=== PATIENT | male | born 1965 | race Caucasian/White ===

== ENCOUNTER 2017-11-28 04:30 | Emergency (ER) | payer MEDICARE, MEDICAID ==
[2017-11-28 04:58] VITALS: BP 133/95
[2017-11-28] MEDS ORDERED: HYDROmorphone 0.5 MG/0.5 ML Syringe IVPUSH ONE (05:17)
[2017-11-28] MEDS ORDERED: Sodium Chloride 0.9% 100 ML IV SCH (05:30)
[2017-11-28] MEDS ORDERED: Iopamidol 612 MG/ML 100 ML Bottle IV SCH (05:30)
--- NOTE | 2017-11-28 06:40 | EDM.PDOC ---
ED HPI GENERAL MEDICAL PROBLEM - General Chief Complaint: Abdominal Pain Stated Complaint: MEDICAL VIA TRI Time Seen by Provider: 11/28/17 05:15 Source of Information: Reports: Patient, EMS History Limitations: Reports: No Limitations - History of Present Illness INITIAL COMMENTS - FREE TEXT/NARRATIVE: 52-year-old male who has had nausea and vomiting for the past 6-8 hours, had diarrhea since yesterday. A similar episode happened 2 years ago and it became a prolonged 3 hospital visit gastroenteritis that finally required 2 days of hospitalization because he was so symptomatic. He is obviously very anxious about being sick. He feels nauseous so he sticks his fingers down his throat to force himself to throw up. He received fentanyl and Zofran in route. No fevers or chills. Onset: Gradual Severity: Moderate Associated Symptoms: Reports: Malaise, Nausea/Vomiting. Denies: Fever/Chills, Headaches, Shortness of Breath epigastric Pain Score (Numeric/FACES): 10 - Related Data Allergies Allergy/AdvReac Type Severity Reaction Status Date / Time acetaminophen [From Tylenol] Allergy Airway Verified 01/17/16 20:55 Tightness Home Meds: Home Meds traMADol HCl [Tramadol HCl] 50 mg PO BID 11/28/17 [History] Past Medical History HEENT History: Reports: Impaired Vision Cardiovascular History: Reports: High Cholesterol Gastrointestinal History: Reports: Hiatal Hernia Genitourinary History: Reports: Other (See Below) Other Genitourinary History: urinary frequency for past 3 years Musculoskeletal History: Reports: Back Pain, Chronic, Fracture, Neck Pain, Chronic Neurological History: Reports: Brain Injury, Migraines Psychiatric History: Reports: Bipolar, Schizophrenia - Infectious Disease History Infectious Disease History: Reports: Chicken Pox - Past Surgical History HEENT Surgical History: Reports: Oral Surgery GI Surgical History: Reports: Hernia Repair/Other Musculoskeletal Surgical History: Reports: Other (See Below) Other Musculoskeletal Surgeries/Procedures:: right collar bone Social & Family History - Tobacco Use Smoking Status *Q: Light Tobacco Smoker Years of Tobacco use: 30 Packs/Tins Daily: 0.2 - Caffeine Use Caffeine Use: Reports: Coffee, Soda - Recreational Drug Use Recreational Drug Use: No ED ROS GENERAL - Review of Systems Review Of Systems: See Below Constitutional: Denies: Fever, Chills HEENT: Reports: No Symptoms Respiratory: Denies: Shortness of Breath GI/Abdominal: Reports: Abdominal Pain, Diarrhea (Abdominal), Nausea, Vomiting : Reports: No Symptoms Skin: Reports: No Symptoms ED EXAM, GI/ABD - Physical Exam Exam: See Below Exam Limited By: No Limitations General Appearance: Alert, Anxious, Mild Distress Eyes: Bilateral: Normal Appearance (No jaundice) Head: Atraumatic Respiratory/Chest: No Respiratory Distress, Lungs Clear Cardiovascular: Regular Rate, Rhythm GI/Abdominal Exam: Tender (Tender to palpation, normal bowel sounds) Neurological: Alert, Oriented Psychiatric: Anxious Skin Exam: Warm, Dry Course - Vital Signs Last Recorded V/S: Last Vital Signs Temp 97.5 F 11/28/17 04:58 Pulse 81 11/28/17 04:58 Resp 20 11/28/17 04:58 BP 133/95 H 11/28/17 04:58 Pulse Ox 97 11/28/17 04:58 - Orders/Labs/Meds Orders: Active Orders 24 hr Category Date Time Status Abdomen Pelvis w Cont [CT] Stat Exams 11/28/17 05:17 Taken Labs: Laboratory Tests 11/28/17 11/28/17 Range/Units 04:53 04:53 WBC 9.4 (4.5-11.0) K/uL RBC 5.00 (4.30-5.90) M/uL Hgb 14.8 (12.0-15.0) g/dL Hct 42.3 (40.0-54.0) % MCV 85 (80-98) fL MCH 30 (27-31) pg MCHC 35 (32-36) % Plt Count 276 (150-400) K/uL Neut % (Auto) 74 H (36-66) % Lymph % (Auto) 16 L (24-44) % [place] % (Auto) 9 H (2-6) % Eos % (Auto) 0 L (2-4) % Baso % (Auto) 0 (0-1) % Sodium 141 (140-148) mmol/L Potassium 3.8 (3.6-5.2) mmol/L Chloride 106 (100-108) mmol/L Carbon Dioxide 24 (21-32) mmol/L Anion Gap 11.5 (5.0-14.0) mmol/L BUN 8 (7-18) mg/dL Creatinine 0.9 (0.8-1.3) mg/dL Est Cr Clr Drug Dosing 87.63 mL/min Estimated GFR (MDRD) > 60 (>60) Glucose 113 H (74-106) mg/dL Calcium 8.6 (8.5-10.1) mg/dL Total Bilirubin 0.4 (0.2-1.0) mg/dL AST 17 (15-37) U/L ALT 33 (12-78) U/L Alkaline Phosphatase 71 (46-116) U/L Total Protein 6.7 (6.4-8.2) g/dL Albumin 3.4 (3.4-5.0) g/dL Globulin 3.3 (2.3-3.5) g/dL Albumin/Globulin Ratio 1.0 L (1.2-2.2) Amylase 36 (25-115) U/L Lipase 68 L (73-393) U/L Meds: Medications Discontinued Medications Generic Name Dose Route Start Last Admin Trade Name Freq PRN Reason Stop Dose Admin Hydromorphone HCl 0.5 mg 11/28/17 05:17 11/28/17 05:24 Dilaudid IVPUSH 11/28/17 05:18 0.5 mg ONETIME ONE Administration Sodium Chloride 100 mls @ 3 mls/sec 11/28/17 05:30 11/28/17 05:44 Normal Saline IV 3 mls/sec ASDIRECTED TRUONG Administration Iopamidol 100 ml 11/28/17 05:30 11/28/17 05:44 Isovue-300 (61%) IV 100 ml . DIRECTED TRUONG Administration - Re-Assessments/Exams Free Text/Narrative Re-Assessment/Exam: 11/28/17 06:39 Patient was given an additional 0.5 mg of IV Dilaudid, CBC CMP and lipase were obtained. I reviewed his past records, he was treated for presumptive diverticulitis and ended up being on Carafate and ranitidine when he was discharged from the hospital. CBC and CMP returned normal, lipase was negative. We then CT does abdomen with IV contrast which was also normal. By the time the CT report came back he was not vomiting, resting, and was just anxious about the pain recurring. Departure - Departure Time of Disposition: 07:58 Disposition: Home, Self-Care 01 Condition: Good Clinical Impression: Gastroenteritis - Discharge Information Instructions: Viral Gastroenteritis, Adult, Peng-yr-Ejyc Referrals: PCP,None [Primary Care Provider] - Forms: ED Department Discharge Care Plan Goals: Stay hydrated with frequent small amounts of fluid and avoid solid food until feeling better. Increase diet as tolerated. Recheck in 2-3 days if not improving satisfactorily or return sooner if worsening. - My Orders Last 24 Hours: My Active Orders 11/28/17 05:17 Abdomen Pelvis w Cont [CT] Stat - Assessment/Plan Last 24 Hours: My Active Orders 11/28/17 05:17 Abdomen Pelvis w Cont [CT] Stat
== END 2017-11-28 07:58 | disposition home or self-care (01) ==
LOC: JP.ED 04:30
DX: K52.9 Noninfective gastroenteritis and colitis, unspecified (principal); F17.210 Nicotine dependence, cigarettes, uncomplicated; Z88.6 Allergy status to analgesic agent
CPT/HCPCS: 36415; 74177; 80053; 82150; 83690; 85025; 96374; 99284; J1170; J7030; Q9967

== ENCOUNTER 2018-05-29 10:47 | Emergency (ER) | payer MEDICARE, MEDICAID ==
[2018-05-29] MEDS ORDERED: HYDROmorphone 1 MG/ML Syringe IVPUSH ONE (10:51)
[2018-05-29] MEDS ORDERED: LORazepam 2 MG/ML SDV IVPUSH ONE (10:51)
[2018-05-29] MEDS ORDERED: Sodium Chloride 0.9% 10 ML Syringe FLUSH PRN (10:53)
[2018-05-29] MEDS ORDERED: Pantoprazole 40 MG Vial IVPUSH ONE (10:57)
[2018-05-29] MEDS ORDERED: Lactated Ringers 1,000 ML IV SCH (11:00)
--- NOTE | 2018-05-29 11:02 | EDM.PDOC ---
ED HPI GENERAL MEDICAL PROBLEM - General Stated Complaint: ABD PAIN Time Seen by Provider: 05/29/18 10:50 Source of Information: Reports: Patient, Old Records, RN Notes Reviewed History Limitations: Reports: No Limitations - History of Present Illness INITIAL COMMENTS - FREE TEXT/NARRATIVE: 52-year-old gentleman presents to the emergency department day complaint of abdominal pain, he states the abdominal pain has been ongoing for the last 3 days however state got significantly worse it is mainly in the epigastric area it is quite intense he is having difficulty answering questions screaming in pain. Difficult to obtain history or review of systems from him due to his severe agitation Abdomen Pain Score (Numeric/FACES): 10 - Related Data Allergies Allergy/AdvReac Type Severity Reaction Status Date / Time acetaminophen [From Tylenol] Allergy Airway Verified 05/29/18 11:19 Tightness Home Meds: Home Meds traMADol HCl [Tramadol HCl] 100 mg PO QID 11/28/17 [History] Ondansetron [Zofran ODT] 4 mg PO Q6H PRN #10 tab.dis 05/29/18 [Rx] oxyCODONE 5 mg PO TID PRN #5 tab 05/29/18 [Rx] Past Medical History HEENT History: Reports: Impaired Vision Cardiovascular History: Reports: High Cholesterol Gastrointestinal History: Reports: Hiatal Hernia Genitourinary History: Reports: Other (See Below) Other Genitourinary History: urinary frequency for past 3 years Musculoskeletal History: Reports: Back Pain, Chronic, Fracture, Neck Pain, Chronic Neurological History: Reports: Brain Injury, Migraines Psychiatric History: Reports: Bipolar, Schizophrenia - Infectious Disease History Infectious Disease History: Reports: Chicken Pox - Past Surgical History HEENT Surgical History: Reports: Oral Surgery GI Surgical History: Reports: Hernia Repair/Other Musculoskeletal Surgical History: Reports: Other (See Below) Other Musculoskeletal Surgeries/Procedures:: right collar bone Social & Family History - Caffeine Use Caffeine Use: Reports: Coffee, Soda ED ROS GENERAL - Review of Systems Review Of Systems: See Below Constitutional: Denies: Fever, Chills Respiratory: Reports: No Symptoms Cardiovascular: Reports: No Symptoms GI/Abdominal: Reports: Abdominal Pain, Flatus, Nausea, Vomiting ED EXAM, GI/ABD - Physical Exam Exam: See Below Exam Limited By: No Limitations General Appearance: Alert, Severe Distress Respiratory/Chest: No Respiratory Distress, Lungs Clear, Normal Breath Sounds, No Accessory Muscle Use Cardiovascular: Regular Rate, Rhythm, No Murmur GI/Abdominal Exam: Soft, Tender (Epigastric region) Extremities: Normal Inspection, Normal Range of Motion, Non-Tender, No Pedal Edema, Normal Capillary Refill Course - Vital Signs Last Recorded V/S: Last Vital Signs Temp 95.2 F L 05/29/18 11:09 Pulse 67 05/29/18 11:44 Resp 18 05/29/18 11:09 BP 158/97 H 05/29/18 11:44 Pulse Ox 92 L 05/29/18 11:44 - Orders/Labs/Meds Orders: Active Orders 24 hr Category Date Time Status Peripheral IV Care [RC] . DIRECTED Care 05/29/18 10:54 Active Abdomen Pelvis w Cont [CT] Urgent Exams 05/29/18 10:53 Taken Iopamidol [Isovue-300 (61%)] Med 05/29/18 12:00 Active 122 ml IV . DIRECTED Lactated Ringers [Ringers, Lactated] 1,000 ml Med 05/29/18 11:00 Active IV ASDIRECTED Sodium Chloride 0.9% [Saline Flush] Med 05/29/18 10:53 Active 10 ml FLUSH ASDIRECTED PRN Peripheral IV Insertion Adult [OM.PC] Urgent Oth 05/29/18 10:53 Ordered Medication Orders Lactated Ringer's (Ringers, Lactated) 1,000 mls @ 999 mls/hr IV ASDIRECTED TRUONG Last Admin: 05/29/18 11:05 Dose: 999 mls/hr Iopamidol (Isovue-300 (61%)) 122 ml IV . DIRECTED TRUONG Last Admin: 05/29/18 12:11 Dose: 122 ml Sodium Chloride (Saline Flush) 10 ml FLUSH ASDIRECTED PRN PRN Reason: Keep Vein Open Last Admin: 05/29/18 12:11 Dose: 10 ml Labs: Laboratory Tests 05/29/18 05/29/18 05/29/18 Range/Units 10:58 10:58 10:58 WBC 11.4 H (4.5-11.0) K/uL RBC 5.77 (4.30-5.90) M/uL Hgb 17.5 H D (12.0-15.0) g/dL Hct 47.8 (40.0-54.0) % MCV 83 (80-98) fL MCH 30 (27-31) pg MCHC 37 H (32-36) % Plt Count 319 (150-400) K/uL Neut % (Auto) 75 H (36-66) % Lymph % (Auto) 16 L (24-44) % [place] % (Auto) 10 H (2-6) % Eos % (Auto) 0 L (2-4) % Baso % (Auto) 0 (0-1) % PT 11.1 (9.5-12.0) sec INR 1.01 (0.80-1.20) Sodium 141 (140-148) mmol/L Potassium 3.1 L (3.6-5.2) mmol/L Chloride 101 (100-108) mmol/L Carbon Dioxide 23 (21-32) mmol/L Anion Gap 20.1 H (5.0-14.0) mmol/L BUN 9 (7-18) mg/dL Creatinine 1.4 H D (0.8-1.3) mg/dL Est Cr Clr Drug Dosing 56.33 mL/min Estimated GFR (MDRD) 53 L (>60) Glucose 141 H (74-106) mg/dL Lactic Acid (0.4-2.0) mmol/L Calcium 10.5 H D (8.5-10.1) mg/dL Total Bilirubin 0.7 D (0.2-1.0) mg/dL AST 20 (15-37) U/L ALT 39 (12-78) U/L Alkaline Phosphatase 89 (46-116) U/L Troponin I < 0.017 (0.000-0.056) ng/mL Total Protein 8.3 H (6.4-8.2) g/dL Albumin 4.1 (3.4-5.0) g/dL Globulin 4.2 H (2.3-3.5) g/dL Albumin/Globulin Ratio 1.0 L (1.2-2.2) Lipase 80 (73-393) U/L Urine Color Urine Appearance Urine pH (4.5-8.0) Ur Specific [place] (1.008-1.030) Urine Protein (NEGATIVE) mg/dL Urine Glucose (UA) (NEGATIVE) mg/dL Urine Ketones (NEGATIVE) mg/dL Urine Occult Blood (NEGATIVE) Urine Nitrite (NEGAITVE) Urine Bilirubin (NEGATIVE) Urine Urobilinogen (NORMAL) mg/dL Ur Leukocyte Esterase (NEGATIVE) Urine RBC (0-5) Urine WBC (0-5) Ur Epithelial Cells Amorphous Sediment Urine Bacteria Urine Mucus Urine Opiates Screen (NEGATIVE) Ur Oxycodone Screen (NEGATIVE) Urine Methadone Screen (NEGATIVE) Ur Propoxyphene Screen (NEGATIVE) Ur Barbiturates Screen (NEGATIVE) Ur Tricyclics Screen (NEGATIVE) Ur Phencyclidine Scrn (NEGATIVE) Ur Amphetamine Screen (NEGATIVE) U Methamphetamines Scrn (NEGATIVE) Urine MDMA Screen (NEGATIVE) U Benzodiazepines Scrn (NEGATIVE) U Cocaine Metab Screen (NEGATIVE) U Marijuana (THC) Screen (NEGATIVE) Ethyl Alcohol mg/dL 05/29/18 05/29/18 05/29/18 Range/Units 10:58 11:44 12:25 WBC (4.5-11.0) K/uL RBC (4.30-5.90) M/uL Hgb (12.0-15.0) g/dL Hct (40.0-54.0) % MCV (80-98) fL MCH (27-31) pg MCHC (32-36) % Plt Count (150-400) K/uL Neut % (Auto) (36-66) % Lymph % (Auto) (24-44) % [place] % (Auto) (2-6) % Eos % (Auto) (2-4) % Baso % (Auto) (0-1) % PT (9.5-12.0) sec INR (0.80-1.20) Sodium (140-148) mmol/L Potassium (3.6-5.2) mmol/L Chloride (100-108) mmol/L Carbon Dioxide (21-32) mmol/L Anion Gap (5.0-14.0) mmol/L BUN (7-18) mg/dL Creatinine (0.8-1.3) mg/dL Est Cr Clr Drug Dosing mL/min Estimated GFR (MDRD) (>60) Glucose (74-106) mg/dL Lactic Acid 5.0 H (0.4-2.0) mmol/L Calcium (8.5-10.1) mg/dL Total Bilirubin (0.2-1.0) mg/dL AST (15-37) U/L ALT (12-78) U/L Alkaline Phosphatase (46-116) U/L Troponin I (0.000-0.056) ng/mL Total Protein (6.4-8.2) g/dL Albumin (3.4-5.0) g/dL Globulin (2.3-3.5) g/dL Albumin/Globulin Ratio (1.2-2.2) Lipase (73-393) U/L Urine Color Yellow Urine Appearance Clear Urine pH 9.0 H (4.5-8.0) Ur Specific [place] 1.000 L (1.008-1.030) Urine Protein 30 H (NEGATIVE) mg/dL Urine Glucose (UA) Normal (NEGATIVE) mg/dL Urine Ketones 50 H (NEGATIVE) mg/dL Urine Occult Blood Negative (NEGATIVE) Urine Nitrite Negative (NEGAITVE) Urine Bilirubin Negative (NEGATIVE) Urine Urobilinogen Normal (NORMAL) mg/dL Ur Leukocyte Esterase Negative (NEGATIVE) Urine RBC Not seen (0-5) Urine WBC Not seen (0-5) Ur Epithelial Cells Rare Amorphous Sediment Not seen Urine Bacteria Not seen Urine Mucus Not seen Urine Opiates Screen (NEGATIVE) Ur Oxycodone Screen (NEGATIVE) Urine Methadone Screen (NEGATIVE) Ur Propoxyphene Screen (NEGATIVE) Ur Barbiturates Screen (NEGATIVE) Ur Tricyclics Screen (NEGATIVE) Ur Phencyclidine Scrn (NEGATIVE) Ur Amphetamine Screen (NEGATIVE) U Methamphetamines Scrn (NEGATIVE) Urine MDMA Screen (NEGATIVE) U Benzodiazepines Scrn (NEGATIVE) U Cocaine Metab Screen (NEGATIVE) U Marijuana (THC) Screen (NEGATIVE) Ethyl Alcohol < 3 mg/dL 05/29/18 Range/Units 12:25 WBC (4.5-11.0) K/uL RBC (4.30-5.90) M/uL Hgb (12.0-15.0) g/dL Hct (40.0-54.0) % MCV (80-98) fL MCH (27-31) pg MCHC (32-36) % Plt Count (150-400) K/uL Neut % (Auto) (36-66) % Lymph % (Auto) (24-44) % [place] % (Auto) (2-6) % Eos % (Auto) (2-4) % Baso % (Auto) (0-1) % PT (9.5-12.0) sec INR (0.80-1.20) Sodium (140-148) mmol/L Potassium (3.6-5.2) mmol/L Chloride (100-108) mmol/L Carbon Dioxide (21-32) mmol/L Anion Gap (5.0-14.0) mmol/L BUN (7-18) mg/dL Creatinine (0.8-1.3) mg/dL Est Cr Clr Drug Dosing mL/min Estimated GFR (MDRD) (>60) Glucose (74-106) mg/dL Lactic Acid (0.4-2.0) mmol/L Calcium (8.5-10.1) mg/dL Total Bilirubin (0.2-1.0) mg/dL AST (15-37) U/L ALT (12-78) U/L Alkaline Phosphatase (46-116) U/L Troponin I (0.000-0.056) ng/mL Total Protein (6.4-8.2) g/dL Albumin (3.4-5.0) g/dL Globulin (2.3-3.5) g/dL Albumin/Globulin Ratio (1.2-2.2) Lipase (73-393) U/L Urine Color Urine Appearance Urine pH (4.5-8.0) Ur Specific [place] (1.008-1.030) Urine Protein (NEGATIVE) mg/dL Urine Glucose (UA) (NEGATIVE) mg/dL Urine Ketones (NEGATIVE) mg/dL Urine Occult Blood (NEGATIVE) Urine Nitrite (NEGAITVE) Urine Bilirubin (NEGATIVE) Urine Urobilinogen (NORMAL) mg/dL Ur Leukocyte Esterase (NEGATIVE) Urine RBC (0-5) Urine WBC (0-5) Ur Epithelial Cells Amorphous Sediment Urine Bacteria Urine Mucus Urine Opiates Screen Presumptive positive H (NEGATIVE) Ur Oxycodone Screen Negative (NEGATIVE) Urine Methadone Screen Negative (NEGATIVE) Ur Propoxyphene Screen Negative (NEGATIVE) Ur Barbiturates Screen Negative (NEGATIVE) Ur Tricyclics Screen Negative (NEGATIVE) Ur Phencyclidine Scrn Negative (NEGATIVE) Ur Amphetamine Screen Negative (NEGATIVE) U Methamphetamines Scrn Presumptive positive H (NEGATIVE) Urine MDMA Screen Negative (NEGATIVE) U Benzodiazepines Scrn Presumptive positive H (NEGATIVE) U Cocaine Metab Screen Negative (NEGATIVE) U Marijuana (THC) Screen Presumptive positive H (NEGATIVE) Ethyl Alcohol mg/dL Meds: Medications Generic Name Dose Route Start Last Admin Trade Name Freq PRN Reason Stop Dose Admin Lactated Ringer's 1,000 mls @ 999 mls/hr 05/29/18 11:00 05/29/18 11:05 Ringers, Lactated IV 999 mls/hr ASDIRECTED TRUONG Administration Iopamidol 122 ml 05/29/18 12:00 05/29/18 12:11 Isovue-300 (61%) IV 122 ml . DIRECTED TRUONG Administration Sodium Chloride 10 ml 05/29/18 10:53 05/29/18 12:11 Saline Flush FLUSH 10 ml ASDIRECTED PRN Administration Keep Vein Open Discontinued Medications Generic Name Dose Route Start Last Admin Trade Name Jimmyq PRN Reason Stop Dose Admin Hydromorphone HCl 1 mg 05/29/18 10:51 05/29/18 11:02 Dilaudid IVPUSH 05/29/18 10:52 1 mg ONETIME ONE Administration Hydromorphone HCl 0.5 mg 05/29/18 14:41 05/29/18 14:46 Dilaudid IVPUSH 05/29/18 14:42 0.5 mg ONETIME ONE Administration Sodium Chloride 100 mls @ 3 mls/sec 05/29/18 11:48 05/29/18 12:11 Normal Saline IV 05/29/18 11:49 3 mls/sec ONETIME ONE Administration Lactated Ringer's 1,000 mls @ 999 mls/hr 05/29/18 15:06 05/29/18 15:16 Ringers, Lactated IV 05/29/18 16:06 999 mls/hr BOLUS ONE Administration Ketorolac Tromethamine 30 mg 05/29/18 13:00 05/29/18 13:08 Toradol IVPUSH 05/29/18 13:01 30 mg ONETIME ONE Administration Lorazepam 1 mg 05/29/18 10:51 05/29/18 11:02 Ativan IVPUSH 05/29/18 10:52 1 mg ONETIME ONE Administration Ondansetron HCl 4 mg 05/29/18 12:57 05/29/18 13:03 Zofran IVPUSH 05/29/18 12:58 4 mg ONETIME ONE Administration Pantoprazole Sodium 40 mg 05/29/18 10:57 05/29/18 11:07 Protonix Iv IVPUSH 05/29/18 10:58 40 mg ONETIME ONE Administration Prochlorperazine Edisylate 5 mg 05/29/18 14:51 05/29/18 15:16 Compazine IVPUSH 05/29/18 14:52 5 mg ONETIME ONE Administration Sodium Chloride 10 ml 05/29/18 11:48 05/29/18 12:32 Normal Saline FLUSH 05/29/18 11:49 10 ml ONETIME ONE Administration Departure - Departure Time of Disposition: 16:21 Disposition: Home, Self-Care 01 Condition: Fair Clinical Impression: Epigastric pain - Discharge Information Prescriptions: Ondansetron [Zofran ODT] 4 mg PO Q6H PRN #10 tab.dis PRN Reason: Nausea oxyCODONE 5 mg PO TID PRN #5 tab PRN Reason: Pain Referrals: PCP,None [Primary Care Provider] - Forms: ED Department Discharge Care Plan Goals: Come to the hospital at 8:15 a.m. to register for your procedure. Nothing to eat or drink after midnight tonight. - My Orders Last 24 Hours: My Active Orders 05/29/18 10:53 Abdomen Pelvis w Cont [CT] Urgent Sodium Chloride 0.9% [Saline Flush] 10 ml FLUSH ASDIRECTED PRN Peripheral IV Insertion Adult [OM.PC] Urgent 05/29/18 10:54 Peripheral IV Care [RC] . DIRECTED 05/29/18 11:00 Lactated Ringers [Ringers, Lactated] 1,000 ml IV ASDIRECTED 05/29/18 12:00 Iopamidol [Isovue-300 (61%)] 122 ml IV . DIRECTED - Assessment/Plan Last 24 Hours: My Active Orders 05/29/18 10:53 Abdomen Pelvis w Cont [CT] Urgent Sodium Chloride 0.9% [Saline Flush] 10 ml FLUSH ASDIRECTED PRN Peripheral IV Insertion Adult [OM.PC] Urgent 05/29/18 10:54 Peripheral IV Care [RC] . DIRECTED 05/29/18 11:00 Lactated Ringers [Ringers, Lactated] 1,000 ml IV ASDIRECTED 05/29/18 12:00 Iopamidol [Isovue-300 (61%)] 122 ml IV . DIRECTED Plan: Assessment Acuity = acute Site and laterality = epigastric pain Etiology = unclear etiology Manifestations = none Location of injury = Home Lab values = CBC unremarkable potassium low at 3.1 consistent hypokalemia lactic acid elevated 5.0 consistent lactic acid primary related to intravascular volume depletion urine drug screen positive for methamphetamine, cannabis, opiates and benzodiazepines, gastric contacts positive for heme occult Plan Called discussed case with Dr. Kwong 1400 also reviewed the case with Dr. Sin at 1500 felt outpatient management was appropriate I therefore a set up for an EGD tomorrow morning prescriptions faxed to [facility] for Zofran ODT 4 mg 1 tab by mouth 3 times a day when necessary as well as oxycodone 5 mg 1 tablet by mouth 3 times a day when necessary total #5. He will report to outpatient surgery tomorrow for EGD with Dr. Kwong This note was dictated using [employer] voice recognition software please call with any questions on syntax or grammar.
[2018-05-29 11:44] VITALS: BP 158/97
[2018-05-29] MEDS ORDERED: Sodium Chloride 0.9% 100 ML IV ONE (11:48)
[2018-05-29] MEDS ORDERED: Sodium Chloride 0.9% 10 ML SDV FLUSH ONE (11:48)
[2018-05-29] MEDS ORDERED: Iopamidol 612 MG/ML 150 ML Bottle IV SCH (12:00)
[2018-05-29] MEDS ORDERED: Ondansetron 4 MG/2 ML SDV IVPUSH ONE (12:57)
[2018-05-29] MEDS ORDERED: Ketorolac 30 MG/ML SDV IVPUSH ONE (13:00)
[2018-05-29] MEDS ORDERED: HYDROmorphone 0.5 MG/0.5 ML Syringe IVPUSH ONE (14:41)
[2018-05-29] MEDS ORDERED: Prochlorperazine 10 MG/2 ML SDV IVPUSH ONE (14:51)
[2018-05-29] MEDS ORDERED: Lactated Ringers 1,000 ML IV ONE (15:06)
== END 2018-05-29 16:45 | disposition home or self-care (01) ==
LOC: JP.ED 10:47
DX: R10.13 Epigastric pain (principal); E78.00 Pure hypercholesterolemia, unspecified; Z88.8 Allergy status to other drugs, medicaments and biological substances; Z79.899 Other long term (current) drug therapy
CPT/HCPCS: 36415; 74177; 80053; 80305; 81001; 82271; 83605; 83690; 84484; 85025; 85610; 96361; 96374; 96375; 96376; 99284; C9113; G0480; J0780; J1170; J1885; J2060; J2405; J7030; J7120

== ENCOUNTER 2018-05-30 07:51 | Day surgery (SDC) | payer MEDICARE, MEDICAID ==
[2018-05-30] MEDS ORDERED: Dextrose 5%-Lactated Ringers 1,000 ML IV SCH (08:45)
[2018-05-30] MEDS ORDERED: Midazolam 1 MG/ML 2 ML SDV ONE (08:56)
[2018-05-30] MEDS ORDERED: Propofol 200 MG/20 ML SDV ONE (08:56)
[2018-05-30] MEDS ORDERED: fentaNYL 100 MCG/2 ML SDV ONE (08:56)
[2018-05-30] MEDS ORDERED: Pantoprazole 40 MG Vial IVPUSH ONE (10:46)
[2018-05-30 12:31] VITALS: BP 109/67
--- NOTE | 2018-06-03 14:27 | OR ---
DATE OF PROCEDURE: 05/30/2018 PREOPERATIVE DIAGNOSIS: Epigastric pain. POSTOPERATIVE DIAGNOSIS: Epigastric pain associated with erosive gastritis involving body and antrum of the stomach. OPERATIVE PROCEDURE: Esophagogastroduodenoscopy with antral biopsies for CLOtest. ANESTHESIA: IV sedation. INDICATION FOR PROCEDURE: A 52-year-old seen in the emergency room yesterday with epigastric discomfort. He is to undergo an upper GI endoscopy at this time. Potential risks of the procedure including bleeding and perforation were discussed, and the patient wishes to proceed. DETAILS OF PROCEDURE: The patient was taken to the operating room and placed in a left lateral decubitus position. IV sedation was administered, after which the upper GI endoscope was passed orally through the length of the esophagus, then into the stomach with retroflexion view of the fundus, thereafter through the pyloric channel, and into the junction of the third and fourth portions of the duodenum. Findings included normal hypopharynx, larynx, upper esophageal sphincter, and esophageal body. At the EG junction, a small hiatal hernia was present, but without significant inflammation. As one passed into the stomach, there was small amount of coffee-ground type material present. Beginning in the mid-body, there were several erosions. One of these had some old-appearing clot on the surface, the others were covered with fibrinous exudate. At this time, no active bleeding was seen. The pyloric channel and the duodenum at the junction of the third and fourth portions were otherwise unremarkable. At this point, biopsies were obtained from the antrum and sent for CLOtest for H. pylori. Minimal bleeding from the biopsy site was seen, and the procedure then concluded. The patient will be given Protonix 40 mg IV in the recovery room and then begin 40 mg daily, and this will be called in. He is set up to see his personal physician, Dr. Pattie Kinney, in [place], in roughly 2 weeks. Rashaun Kwong MD Job #: [id number]
== END 2018-05-30 12:25 | disposition home or self-care (01) ==
LOC: JP.SDS 07:51
PROVIDERS: ATTEND Surgery
DX: K29.00 Acute gastritis without bleeding (principal); F17.200 Nicotine dependence, unspecified, uncomplicated; E78.5 Hyperlipidemia, unspecified; Z88.6 Allergy status to analgesic agent
CPT/HCPCS: 43239; 87081; C9113; J2250; J2704; J3010; J7042

== ENCOUNTER 2018-05-30 20:06 | Emergency (ER) | payer MEDICARE, MEDICAID ==
[2018-05-30] MEDS ORDERED: Metoclopramide 10 MG/2 ML SDV IVPUSH ONE (20:16)
[2018-05-30] MEDS ORDERED: Alum Hydrox/Mag Hydrox/Simeth 15 ML, Lidocaine 2% 15 ML PO ONE ×2 (20:16)
--- NOTE | 2018-05-30 20:28 | EDM.PDOC ---
ED HPI GENERAL MEDICAL PROBLEM - General Chief Complaint: Abdominal Pain Stated Complaint: MEDICAL [facility] Time Seen by Provider: 05/30/18 20:22 Source of Information: Reports: Patient, EMS, Old Records, RN History Limitations: Reports: No Limitations - History of Present Illness INITIAL COMMENTS - FREE TEXT/NARRATIVE: 52 yo male returns to the ER for epigastric pain and vomiting. Was seen yesterday and had a big ER work up including blood work and a CT scan that failed to show significant pathology. He did have a very positive urine drug screen with amphetamines, benzo's, opiates, and marijuana present. Today he had EGD here for further work up. EMS gave f fentanyl 100 mcg IV before arrival with partial relief(minimal). Claims today's scoping showed gastric ulcers and he was placed in Protonix 40 mg daily for this and sent home. Alleges terrible pain not relieved with the fentanyl. No report of bleeding either orally or rectally. Onset: Gradual, Unknown/Unsure Duration: Day(s):, Getting Worse Location: Reports: Abdomen (epigastric) Quality: Reports: Stabbing Severity: Severe Improves with: Reports: None Worsens with: Reports: Other (unknown) Context: Reports: Other (See HPI) Associated Symptoms: Reports: Nausea/Vomiting. Denies: Fever/Chills Treatments WE[employer]: Reports: Other (see below) (fentanyl 100 mcg IV) Upper Abdomen Pain Score (Numeric/FACES): 10 - Related Data Allergies Allergy/AdvReac Type Severity Reaction Status Date / Time acetaminophen [From Tylenol] Allergy Airway Verified 05/30/18 20:45 Tightness Home Meds: Home Meds traMADol HCl [Tramadol HCl] 100 mg PO QID 11/28/17 [History] oxyCODONE 5 mg PO TID PRN #5 tab 05/29/18 [Rx] Pantoprazole [ProTONIX] 40 mg PO DAILY 05/30/18 [History] Past Medical History HEENT History: Reports: Impaired Vision Cardiovascular History: Reports: High Cholesterol Gastrointestinal History: Reports: Hiatal Hernia Genitourinary History: Reports: Other (See Below) Other Genitourinary History: urinary frequency for past 3 years Musculoskeletal History: Reports: Back Pain, Chronic, Fracture, Neck Pain, Chronic Neurological History: Reports: Brain Injury, Migraines Psychiatric History: Reports: Bipolar, Schizophrenia - Infectious Disease History Infectious Disease History: Reports: Chicken Pox - Past Surgical History Head Surgeries/Procedures: Reports: None HEENT Surgical History: Reports: Oral Surgery Cardiovascular Surgical History: Reports: None Respiratory Surgical History: Reports: None GI Surgical History: Reports: Hernia Repair/Other Musculoskeletal Surgical History: Reports: Other (See Below) Other Musculoskeletal Surgeries/Procedures:: right collar bone Social & Family History - Family History Family Medical History: Noncontributory - Caffeine Use Caffeine Use: Reports: Coffee, Tea ED ROS GENERAL - Review of Systems Review Of Systems: See Below Constitutional: Reports: No Symptoms HEENT: Reports: No Symptoms Respiratory: Reports: No Symptoms Cardiovascular: Reports: No Symptoms GI/Abdominal: Reports: Abdominal Pain, Nausea, Vomiting. Denies: Black Stool, Bloody Stool, Constipation, Diarrhea, Distension, Hematemesis, Hematochezia, Melena : Reports: No Symptoms Musculoskeletal: Reports: No Symptoms Skin: Reports: No Symptoms Neurological: Reports: No Symptoms ED EXAM, GI/ABD - Physical Exam Exam: See Below Exam Limited By: No Limitations General Appearance: Alert, WD/WN, No Apparent Distress Eyes: Bilateral: Normal Appearance Ears: Normal External Exam, Normal Canal Nose: Normal Inspection, No Blood Throat/Mouth: Normal Inspection, Normal Lips, Normal Oropharynx, Normal Voice, No Airway Compromise Head: Atraumatic, Normocephalic Neck: Normal Inspection Respiratory/Chest: No Respiratory Distress, Lungs Clear, Normal Breath Sounds, No Accessory Muscle Use Cardiovascular: Regular Rate, Rhythm, No Edema GI/Abdominal Exam: Normal Bowel Sounds, Soft, No Distention, Tender (epigastric) . No: Distended, Guarding, Rigid, Rebound, Hernia Back Exam: Normal Inspection. No: CVA Tenderness (R), CVA Tenderness (L) Extremities: Normal Inspection, Normal Range of Motion, Non-Tender, No Pedal Edema Neurological: Alert, Oriented, CN II-XII Intact, Normal Cognition, No Motor/ Sensory Deficits Psychiatric: Normal Affect, Normal Mood Skin Exam: Warm, Dry, Intact, Normal Color, No Rash Lymphatic: No Adenopathy Course - Vital Signs Text/Narrative:: Seems more comfortable after tx in the ER Last Recorded V/S: Last Vital Signs Temp 37.0 C 05/30/18 20:44 Pulse 69 05/30/18 20:44 Resp 22 H 05/30/18 20:44 BP 136/80 05/30/18 20:44 Pulse Ox 99 05/30/18 20:44 - Orders/Labs/Meds Orders: Active Orders 24 hr Category Date Time Status Pantoprazole [ProTONIX IV] Med 05/30/18 20:30 Active 80 mg IVPUSH .BOLUS Medication Orders Pantoprazole Sodium (Protonix Iv) 80 mg IVPUSH .BOLUS TRUONG Last Admin: 05/30/18 20:38 Dose: 80 mg Labs: Laboratory Tests 05/30/18 05/30/18 05/30/18 Range/Units 20:21 20:21 20:21 WBC 9.3 (4.5-11.0) K/uL RBC 5.30 (4.30-5.90) M/uL Hgb 15.5 H D (12.0-15.0) g/dL Hct 44.5 (40.0-54.0) % MCV 84 (80-98) fL MCH 29 (27-31) pg MCHC 35 (32-36) % Plt Count 321 (150-400) K/uL Sodium 141 (140-148) mmol/L Potassium 3.2 L (3.6-5.2) mmol/L Chloride 102 (100-108) mmol/L Carbon Dioxide 24 (21-32) mmol/L Anion Gap 18.2 H (5.0-14.0) mmol/L BUN 9 (7-18) mg/dL Creatinine 1.1 (0.8-1.3) mg/dL Est Cr Clr Drug Dosing 71.69 mL/min Estimated GFR (MDRD) > 60 (>60) Glucose 131 H (74-106) mg/dL Calcium 9.2 (8.5-10.1) mg/dL C-Reactive Protein 1.00 H (0.0-0.3) mg/dL Lipase 74 (73-393) U/L Meds: Medications Generic Name Dose Route Start Last Admin Trade Name Freq PRN Reason Stop Dose Admin Pantoprazole Sodium 80 mg 05/30/18 20:30 05/30/18 20:38 Protonix Iv IVPUSH 80 mg .BOLUS TRUONG Administration Discontinued Medications Generic Name Dose Route Start Last Admin Trade Name Freq PRN Reason Stop Dose Admin Al Hydroxide/Mg Hydroxide 15 0 ml 05/30/18 20:16 05/30/18 20:31 ml/ Lidocaine HCl 15 ml PO 05/30/18 20:17 30 ml ONETIME ONE Administration Metoclopramide HCl 10 mg 05/30/18 20:16 05/30/18 20:30 Reglan IVPUSH 05/30/18 20:17 10 mg ONETIME ONE Administration Potassium Chloride 20 meq 05/30/18 21:12 Potassium Chloride PO 05/30/18 21:13 ONETIME ONE Departure - Departure Time of Disposition: 21:25 Disposition: Home, Self-Care 01 Condition: Fair Clinical Impression: Peptic ulcer disease, Hypokalemia Gastritis Qualifiers: Gastritis type: unspecified gastritis Chronicity: acute Gastritis bleeding: without bleeding Qualified Code(s): K29.00 - Acute gastritis without bleeding - Discharge Information *PRESCRIPTION DRUG MONITORING PROGRAM REVIEWED*: No *COPY OF PRESCRIPTION DRUG MONITORING REPORT IN PATIENT ALLISON: No Instructions: Peptic Ulcer, [id number], Hypokalemia Referrals: PCP,None [Primary Care Provider] - Forms: ED Department Discharge Additional Instructions: Resume your prescribed medication in the morning tomorrow. Take Maalox 30 ml with every meal and at bedtime until your pain is gone. Avoid ibuprofen, Aleve, or aspirin. Avoid any illicit drugs. See your doctor for recheck early next week. Use Zofran as needed for nausea control. - My Orders Last 24 Hours: My Active Orders 05/30/18 20:30 Pantoprazole [ProTONIX IV] 80 mg IVPUSH .BOLUS - Assessment/Plan Last 24 Hours: My Active Orders 05/30/18 20:30 Pantoprazole [ProTONIX IV] 80 mg IVPUSH .BOLUS
[2018-05-30] MEDS ORDERED: Pantoprazole 40 MG Vial IVPUSH SCH (20:30)
[2018-05-30] MEDS ORDERED: Potassium Chloride 10 MEQ Cap.ER PO ONE (21:12)
[2018-05-30] MEDS ORDERED: Aluminum Hydroxide/Magnesium Hydroxide/Simethicone Susp 30 ML Cup PO ONE (21:26)
[2018-05-30 21:51] VITALS: BP 128/78
== END 2018-05-30 21:40 | disposition home or self-care (01) ==
LOC: JP.ED 20:06
DX: K29.00 Acute gastritis without bleeding (principal); K27.9 Peptic ulcer, site unspecified, unspecified as acute or chronic, without hemorrhage or perforation; E87.6 Hypokalemia; Z88.8 Allergy status to other drugs, medicaments and biological substances
CPT/HCPCS: 36415; 80048; 83690; 85027; 86140; 96374; 96375; 99284; A9270; C9113; J2765

== ENCOUNTER 2021-10-11 20:40 | Emergency (ER) | payer MEDICARE, MEDICAID ==
[2021-10-11] MEDS ORDERED: OLANZapine 10 MG Vial IM ONE (20:50)
[2021-10-11 21:22] LABS: TROPONIN I HIGH SENSITIVITY 5.3 pg/mL (<=60.3)
[2021-10-11 21:42] LABS: CORONAVIRUS COVID-19 NAA NEGATIVE (NEGATIVE)
[2021-10-12 00:13] VITALS: BP 96/45; PULSE 93
== END 2021-10-12 09:10 | disposition home or self-care (01) ==
LOC: JP.ED 20:40
DX: R40.20 Unspecified coma (principal); F10.920 Alcohol use, unspecified with intoxication, uncomplicated; Z88.6 Allergy status to analgesic agent; Z79.899 Other long term (current) drug therapy; Z20.822 Contact with and (suspected) exposure to COVID-19
CPT/HCPCS: 0241U; 36415; 70450; 80053; 80305-QW; 80307; 81001; 84484; 85025; 85610; 85730; 96372; 99285-25; J3490

== ENCOUNTER 2022-11-29 20:16 | Day surgery (SDC) | payer MEDICARE, MEDICAID ==
[2022-11-29 20:35] LABS: BASOPHILS ABSOLUTE AUTO 0.03 K/uL (0.00-0.10); BASOPHILS PERCENT AUTO 0.2 % (0.1-1.3); EOSINOPHILS PERCENT AUTO 0.1 % (0.0-5.4); HEMATOCRIT 43.2 % (38.4-49.7); HEMOGLOBIN 14.9 g/dL (12.9-16.9); IMMATURE GRAN ABSOLUTE AUTO 0.05 K/uL (0.00-0.23); IMMATURE GRAN PERCENT AUTO 0.4 % (0.0-0.7); LYMPHOCYTES ABSOLUTE AUTO 2.14 K/uL (0.8-3.3); LYMPHOCYTES PERCENT AUTO 15.5 % (11.4-47.7); MEAN CORPUSCULAR HEMOGLOBIN 29.2 pg (31.6-35.5); MEAN CORPUSCULAR HGB CONC 34.5 g/dL (31.6-35.5); MEAN CORPUSCULAR VOLUME 84.7 fL (81.4-99.0); MONOCYTES ABSOLUTE AUTO 0.72 K/uL (0.20-0.90); MONOCYTES PERCENT AUTO 5.2 % (3.3-12.6); NEUTROPHILS ABSOLUTE AUTO 10.83 K/uL (1.0-7.6); NEUTROPHILS PERCENT AUTO 78.6 % (40.0-78.1); PLATELET COUNT,PLT 339 K/uL (130-375); WHITE BLOOD CELL COUNT,WBC 13.8 K/uL (3.2-11.0)
[2022-11-29 20:36] LABS: EOSINOPHILS ABSOLUTE AUTO 0.01 K/uL (0.00-0.40)
[2022-11-29] MEDS ORDERED: LORazepam 2 MG/ML SDV IVPUSH ONE (20:52)
[2022-11-29 20:57] LABS: A/G RATIO 0.9 (1.2-2.2); ALANINE AMINOTRANSFERASE,ALT 29 U/L (12-78); ALBUMIN 3.4 g/dL (3.4-5.0); ALKALINE PHOSPHATASE 70 U/L (46-116); ASPARTATE AMNIOTRANSFERASE,AST 17 U/L (15-37); BILIRUBIN TOTAL 0.6 mg/dL (0.2-1.0); BLOOD UREA NITROGEN,BUN 12 mg/dL (7-18); CARBON DIOXIDE,CO2 22 mmol/L (21-32); CHLORIDE,CL 108 mmol/L (100-108); CREATININE 1.2 mg/dL (0.8-1.3); EST CRCL DRUG DOSING (CG) 62.03 mL/min; ESTIMATED GFR 71 mL/min (>60); GLUCOSE RANDOM 182 mg/dL (74-106); POTASSIUM,K 3.8 mmol/L (3.6-5.2); PROTEIN TOTAL,TP 7.3 g/dL (6.4-8.2); SODIUM,NA 141 mmol/L (140-148)
[2022-11-29 23:04] LABS: AMPHETAMINES SCREEN, URINE NEGATIVE (NEGATIVE); BARBITURATE SCREEN,URINE NEGATIVE (NEGATIVE); BENZODIAZEPINES SCREEN,URINE NEGATIVE (NEGATIVE); METHADONE SCREEN, URINE NEGATIVE (NEGATIVE); METHAMPHETAMINES SCREEN, URINE NEGATIVE (NEGATIVE); OXYCODONE SCREEN,URINE NEGATIVE (NEGATIVE); PROPOXYPHENE SCREEN,URINE NEGATIVE (NEGATIVE); THC SCREEN,URINE 50 NG/ML PRESUMPTIVE POSITIVE (NEGATIVE)
[2022-11-29] MEDS ORDERED: Aluminum Hydroxide/Magnesium Hydroxide/Simethicone Susp 30 ML Cup PO ONE (23:08)
[2022-11-29] MEDS ORDERED: Pantoprazole 40 MG Vial IVPUSH ONE (23:08)
[2022-11-29] MEDS ORDERED: droPERidol 5 MG/2 ML SDV IVPUSH ONE (23:16)
[2022-11-30] MEDS ORDERED: droPERidol 5 MG/2 ML SDV IVPUSH ONE (02:24)
[2022-11-30] MEDS ORDERED: Sodium Chloride 0.9% 1,000 ML IV SCH (03:30)
[2022-11-30] MEDS ORDERED: Dextrose 5%-Lactated Ringers 1,000 ML IV SCH (07:25)
[2022-11-30] MEDS ORDERED: fentaNYL 50 MCG/ML SDV ONE (08:41)
[2022-11-30] MEDS ORDERED: Propofol 200 MG/20 ML SDV ONE (08:41)
[2022-11-30] MEDS ORDERED: Midazolam 1 MG/ML 2 ML SDV ONE (08:41)
[2022-11-30] MEDS ORDERED: Pantoprazole 40 MG Vial IVPUSH ONE (09:29)
[2022-11-30 10:40] VITALS: BP 93/73; PULSE 89
== END 2022-11-30 12:45 | disposition home or self-care (01) ==
LOC: JP.ED 20:16 → JP.SDS 11-30 06:48
PROVIDERS: ATTEND Surgery
DX: K29.70 Gastritis, unspecified, without bleeding (principal); K29.80 Duodenitis without bleeding; B96.81 Helicobacter pylori [H. pylori] as the cause of diseases classified elsewhere; E78.00 Pure hypercholesterolemia, unspecified; M54.9 Dorsalgia, unspecified; G89.29 Other chronic pain; G43.909 Migraine, unspecified, not intractable, without status migrainosus; F20.9 Schizophrenia, unspecified; F17.210 Nicotine dependence, cigarettes, uncomplicated; Z88.6 Allergy status to analgesic agent
CPT/HCPCS: 36415; 43239; 74176; 80053; 80305; 80307; 83690; 85025; 86140; 87081; 96361; 96374; 96375; 96376; 99283; 99285; A9270; C9113; J1790; J2060; J2250; J2704; J3010; J7030; J7121

== ENCOUNTER 2023-03-06 10:27 | Emergency (ER) | payer MEDICARE, MEDICAID ==
[2023-03-06 11:03] VITALS: BP 118/89; PULSE 105
== END 2023-03-06 13:01 | disposition home or self-care (01) ==
LOC: JP.ED 10:27
DX: M54.2 Cervicalgia (principal); M79.672 Pain in left foot; G89.29 Other chronic pain; Z87.891 Personal history of nicotine dependence; Z88.6 Allergy status to analgesic agent
CPT/HCPCS: 72125; 72125-26; 73630-26-LT; 73630-LT; 76377; 99284

== ENCOUNTER 2024-12-04 20:51 | Emergency (ER) | payer MEDICARE, MEDICAID ==
[2024-12-04] MEDS: fentaNYL 50 MCG/ML SDV IVPUSH ONE (21:14)
[2024-12-04 21:21] LABS: PLATELET COUNT,PLT 327.0 K/uL (130-375); RED BLOOD CELL COUNT 5.61 M/uL (4.14-5.76); WHITE BLOOD CELL COUNT,WBC 12.8 K/uL (3.2-11.0)
[2024-12-04 21:35] LABS: AMPHETAMINES SCREEN, URINE NEGATIVE (NEGATIVE); METHADONE SCREEN, URINE NEGATIVE (NEGATIVE); METHAMPHETAMINES SCREEN, URINE NEGATIVE (NEGATIVE); OXYCODONE SCREEN,URINE NEGATIVE (NEGATIVE); PROPOXYPHENE SCREEN,URINE NEGATIVE (NEGATIVE); THC SCREEN,URINE 50 NG/ML PRESUMPTIVE POSITIVE (NEGATIVE)
[2024-12-04 21:42] LABS: A/G RATIO 1.0 (1.2-2.2); ALANINE AMINOTRANSFERASE,ALT 22 U/L (12-78); ASPARTATE AMNIOTRANSFERASE,AST 11 U/L (15-37); BILIRUBIN TOTAL 0.8 mg/dL (0.2-1.0); BLOOD UREA NITROGEN,BUN 16 mg/dL (7-18); CARBON DIOXIDE,CO2 19 mmol/L (21-32); CHLORIDE,CL 103 mmol/L (100-108); CREATININE 1.2 mg/dL (0.8-1.3); ESTIMATED GFR 70 mL/min (>60); GLUCOSE RANDOM 204 mg/dL (74-106); POTASSIUM,K 3.8 mmol/L (3.6-5.2); PROTEIN TOTAL,TP 7.8 g/dL (6.4-8.2); SODIUM,NA 140 mmol/L (140-148)
[2024-12-04 22:16] VITALS: BP 109/79; PULSE 89
== END 2024-12-04 23:16 | disposition home or self-care (01) ==
LOC: JP.ED 20:51
DX: R11.10 Vomiting, unspecified (principal); F12.10 Cannabis abuse, uncomplicated; Z88.8 Allergy status to other drugs, medicaments and biological substances; Z79.899 Other long term (current) drug therapy
CPT/HCPCS: 36415; 80053; 80305; 83605; 85027; 96361; 96374; 96375; 99283; 99284; J1790; J3010; J7030

== ENCOUNTER 2024-12-06 08:15 | Emergency (ER) | payer MEDICARE, MEDICAID ==
[2024-12-06] MEDS: diphenhydrAMINE 50 MG/ML SDV IVPUSH ONE (08:52)
[2024-12-06 08:59] LABS: BASOPHILS ABSOLUTE AUTO 0.04 K/uL (0.00-0.10); BASOPHILS PERCENT AUTO 0.2 % (0.1-1.3); EOSINOPHILS PERCENT AUTO 0.0 % (0.0-5.4); IMMATURE GRAN ABSOLUTE AUTO 0.16 K/uL (0.00-0.23); IMMATURE GRAN PERCENT AUTO 0.7 % (0.0-0.7); LYMPHOCYTES ABSOLUTE AUTO 1.54 K/uL (0.8-3.3); LYMPHOCYTES PERCENT AUTO 6.8 % (11.4-47.7); MONOCYTES ABSOLUTE AUTO 1.32 K/uL (0.20-0.90); MONOCYTES PERCENT AUTO 5.8 % (3.3-12.6); NEUTROPHILS ABSOLUTE AUTO 19.68 K/uL (1.0-7.6); NEUTROPHILS PERCENT AUTO 86.5 % (40.0-78.1); PLATELET COUNT,PLT 334 K/uL (130-375); RED BLOOD CELL COUNT 5.56 M/uL (4.14-5.76); WHITE BLOOD CELL COUNT,WBC 22.7 K/uL (3.2-11.0)
[2024-12-06 09:02] LABS: EOSINOPHILS ABSOLUTE AUTO 0.00 K/uL (0.00-0.40)
[2024-12-06 09:22] LABS: A/G RATIO 1.0 (1.2-2.2); ALANINE AMINOTRANSFERASE,ALT 21 U/L (12-78); ASPARTATE AMNIOTRANSFERASE,AST 18 U/L (15-37); BILIRUBIN TOTAL 0.7 mg/dL (0.2-1.0); BLOOD UREA NITROGEN,BUN 16 mg/dL (7-18); CARBON DIOXIDE,CO2 25 mmol/L (21-32); CHLORIDE,CL 98 mmol/L (100-108); CREATININE 1.1 mg/dL (0.8-1.3); EST CRCL DRUG DOSING (CG) 66.06 mL/min; ESTIMATED GFR 78 mL/min (>60); GLUCOSE RANDOM 102 mg/dL (74-106); PROTEIN TOTAL,TP 8.4 g/dL (6.4-8.2); SODIUM,NA 136 mmol/L (140-148)
[2024-12-06 09:24] LABS: POTASSIUM,K 2.8 mmol/L (3.6-5.2)
[2024-12-06] MEDS: Iopamidol 612 MG/ML 100 ML Bottle IV PRN (09:39)
[2024-12-06] MEDS: Sodium Chloride 0.9% 10 ML Syringe FLUSH PRN (09:39)
[2024-12-06 10:26] VITALS: BP 105/67; PULSE 102
[2024-12-06 10:30] LABS: APPEARANCE,URINE CLEAR (CLEAR); GLUCOSE,URINE NEGATIVE (NEGATIVE); OCCULT BLOOD,URINE TRACE-INTACT (NEGATIVE)
[2024-12-06 10:39] LABS: SQUAMOUS EPITHELIAL CELLS,UR NOT SEEN /HPF
[2024-12-06] MEDS: Potassium Chloride 20 MEQ Tab.ER PO ONE (12:05)
== END 2024-12-06 14:44 | disposition home or self-care (01) ==
LOC: JP.ED 08:15
DX: R10.84 Generalized abdominal pain (principal); R11.2 Nausea with vomiting, unspecified; F17.210 Nicotine dependence, cigarettes, uncomplicated; Z88.6 Allergy status to analgesic agent
CPT/HCPCS: 36415; 74177; 80053; 81001; 83690; 85025; 96361; 96374; 96375; 96376; 99284; A9270; J1200; J1790; J7030; Q9967